=== PATIENT | female | born 1980 | race Caucasian/White ===

== ENCOUNTER 2022-05-20 08:02 | Outpatient (CLI) | payer BC, SELFPAY ==
--- NOTE | 2022-05-20 08:15 | CRLHL7_ITS ---
For Patients: As a result of the Century Cures Act, medical imaging exams and procedure reports are released immediately into your electronic medical record. You may view this report before your referring provider. If you have questions, please contact your health care provider. BILATERAL SCREENING MAMMOGRAM WITH COMPUTER-AIDED DETECTION AND TOMOSYNTHESIS TECHNIQUE: CC and MLO views were obtained. These mammographic images have been obtained using full-field digital technique. These mammographic images were interpreted with the benefit of computer-aided detection. Breast Tomosynthesis was used in this interpretation. COMPARISON FILM: 03/12/21, 02/14/20 and 02/20/20 diagnostic, 02/01/19. FINDINGS: There are scattered areas of fibroglandular density IMPRESSION: There is no radiographic evidence for malignancy. ASSESSMENT: BI-RADS Category 1: Negative RECOMMENDATION: Routine screening mammogram in 1 year. A lay language report of this examination will be provided to the patient. Trevon Villalta M.D. Diagnostic Radiologist [email or web address] ARVIN/Dictated by: Trevon Villalta MD @ 05/20/2022 12:35:00 PM (Electronically Signed)
[2022-05-20 11:05] LABS: Glucose* 91 mg/dL (60-115)
[2022-05-21 10:27] LABS: Cholesterol* 205 mg/dL (90-199); HDL Cholesterol* 71 mg/dL (>=50); LDL Cholesterol Calculated 116 mg/dL (<100); Triglycerides* 91 mg/dL (40-149)
== END 2022-05-20 08:03 | disposition home or self-care (01) ==
LOC: MAMMO 08:02
PROVIDERS: PCP Family Medicine; Visit Provider Physician Assistant
DX: Z12.31 Encounter for screening mammogram for malignant neoplasm of breast (principal); Z13.6 Encounter for screening for cardiovascular disorders; Z13.1 Encounter for screening for diabetes mellitus
CPT/HCPCS: 36415; 77063; 77067; 80061; 82947

== ENCOUNTER 2023-03-06 10:52 | Outpatient (CLI) | payer BC, SELFPAY | END 2023-03-06 10:53 | disposition home or self-care (01) | LOC: NFLDREF 10:55 | PROVIDERS: PCP Family Medicine; Visit Provider Physician Assistant | DX: Z01.419 Encounter for gynecological examination (general) (routine) without abnormal findings (principal); R63.5 Abnormal weight gain; R03.0 Elevated blood-pressure reading, without diagnosis of hypertension | CPT/HCPCS: 84443 ==

== ENCOUNTER 2023-04-01 08:04 | Outpatient (CLI) | payer BC, SELFPAY | END 2023-04-01 08:05 | disposition home or self-care (01) | LOC: NFLDREF 08:06 | PROVIDERS: PCP Family Medicine; Visit Provider Family Medicine | DX: R63.4 Abnormal weight loss (principal); R06.09 Other forms of dyspnea | CPT/HCPCS: 80053 ==

== ENCOUNTER 2023-04-30 10:09 | Outpatient (CLI) | payer BC, SELFPAY ==
[2023-04-30 10:50] VITALS: BP 146/77; PULSE 85
--- NOTE | 2023-04-30 11:17 | W.PM.STED ---
Stress Test Note Date Date of test: 04/30/23 Providers Primary care provider: Barber Mckeon Stress test physician: Myles Downing Stress Test Note Stress test ordered: Exercise Stress Test Indication for test: Shortness of breath Results discussion: Patient is a 43-year-old female presents for the above test, her resting EKG shows normal sinus rhythm, with a ventricular rate of 65, blood pressure 138/86. No acute ST wave changes noted. Cardiac stress test medical history form is reviewed, she would like to proceed. Standard exercise protocol is used over a time course of 11 minutes, she achieved a metabolic equivalent of 12.1 Mets. Maximum it was 168 which is 112% of the maximum. Her maximum blood pressure was 220 and 90. Test is terminated because of fulfillment of protocol, conditioning was felt to be excellent. No anginal equivalent symptoms are noted. Review of the tracing shows no specific ST wave changes suggestive of ischemia, there is no dysrhythmias. Impression: Negative electrographic portion of stress test, condition was felt to be excellent Follow up suggested: This is a negative test, if further testing is needed suggested would be had in an imaging modality such as a stress echo. Patient left this testing facility in good condition.
== END 2023-04-30 10:10 | disposition home or self-care (01) ==
LOC: STRESS 10:10
PROVIDERS: PCP Family Medicine; Visit Provider Family Medicine
DX: R06.09 Other forms of dyspnea (principal)
CPT/HCPCS: 93016; 93017

== ENCOUNTER 2023-11-10 14:23 | Outpatient (CLI) | payer BC, SELFPAY ==
--- OUTSIDE RECORDS SUMMARY | 2023-11-10 14:26 | XMS_ITS | Clinical Summary ---
Author Organization [facility] er Address [address] [place] [address] Care Team Providers Care Named Account Executive Name Role Phone None, Pcp Primary Care Provider Unavailabl e Social History Tobacco Use Types Packs/Day Years Used Date Smoking Tobacco: Never Smokeless Tobacco: Never Tobacco Cessation:Counseling Given: Not Answered Sex and Gender Information Value Date Recorded Sex Assigned at Not on file Gender Identity Not on file Sexual Orientation Not on file Last Filed Vital Signs Vital Sign Reading Time Taken Comments Blood Pressure 128/72 03/13/2023 4:13 PM CDT Pulse 80 03/13/2023 4:13 PM CDT Temperature - - Respiratory Rate - - Oxygen Saturation - - Inhaled Oxygen Concentration - - Weight 96.2 kg (212 lb) 03/13/2023 4:13 PM CDT Height 170.2 cm (5' 7) 03/13/2023 4:13 PM CDT Body Mass Index 33.2 03/13/2023 4:13 PM CDT Plan of Treatment Health Maintenance Due Date Last Done Comments CT Colonography 1978 Colonoscopy 1978 Colorectal Cancer Screening 1978 FIT-DNA 1978 Mammogram 1978 Pap Smear 1978 Sigmoidoscopy 1978 iFOBT 1978 COVID-19 Vaccine ( season) 2023 05/16/2021, 09/07/2020, 08/17/2020 DTaP,Tdap,and Td Vaccines (3 - Td or Tdap) 02/22/2024 02/21/2014, 09/03/2010 Influenza Vaccine Completed 03/06/2023, , 05/08/2016, Additional history exists HPV Vaccines Aged Out No longer eligi ble based on patient's age to complete this topic Pneumococcal Vaccine: Pediatrics (0 to 5 Years) and At-Risk Patients (6 to 64 Years) Aged Out No longer eligible based on patient's age to complete this topic Care Teams Named Account Executive Relationship Specialty Start Date End Date None, Pcp [address] [place] [phone] PCP - General Sand Mixer 03/11/23
--- NOTE | 2023-11-10 14:40 | CRLHL7_ITS ---
For Patients: As a result of the Century Cures Act, medical imaging exams and procedure reports are released immediately into your electronic medical record. You may view this report before your referring provider. If you have questions, please contact your health care provider. BILATERAL SCREENING MAMMOGRAM WITH COMPUTER-AIDED DETECTION AND TOMOSYNTHESIS TECHNIQUE: CC and MLO views were obtained. These mammographic images have been obtained using full-field digital technique. These mammographic images were interpreted with the benefit of computer-aided detection. Breast Tomosynthesis was used in this interpretation. COMPARISON FILM: 05/20/22, 03/12/21, 02/14/20. FINDINGS: There are scattered areas of fibroglandular density IMPRESSION: There is no radiographic evidence for malignancy. ASSESSMENT: BI-RADS Category 1: Negative RECOMMENDATION: Routine screening mammogram in 1 year. A lay language report of this examination will be provided to the patient. Trevon Villalta M.D. Diagnostic Radiologist [email or web address] Transcribed: 12:54 [email or web address] etran/Dictated by: Trevon Villalta MD @ 11/13/2023 11:43:00 AM (Electronically Signed)
== END 2023-11-10 14:24 | disposition home or self-care (01) ==
LOC: MAMMO 14:24
PROVIDERS: PCP Family Medicine; Visit Provider Physician Assistant
DX: Z12.31 Encounter for screening mammogram for malignant neoplasm of breast (principal)
CPT/HCPCS: 77063; 77067

== ENCOUNTER 2024-04-14 09:17 | Outpatient (CLI) | payer BC, SELFPAY ==
--- OUTSIDE RECORDS SUMMARY | 2024-04-14 09:19 | XMS_ITS | Clinical Summary ---
Author Organization [facility] er Address [address] [place] [address] Care Team Providers Care Securities Broker Name Role Phone None, Pcp Primary Care Provider Unavailabl e Social History Tobacco Use Types Packs/Day Years Used Date Smoking Tobacco: Never Smokeless Tobacco: Never Tobacco Cessation:Counseling Given: Not Answered Comments Unknown Sex and Gender Information Value Date Recorded Sex Assigned at Not on file Legal Sex Female 2:35 PM CDT Gender Identity Not on file Sexual Orientation [...] 1978 iFOBT 1978 COVID-19 Vaccine ( season) 2024 05/16/2021, 09/07/2020, 08/17/2020 Influenza Vaccine (#1) 2024 , 03/07/2020, 05/08/2016, Additional history exists DTaP,Tdap,and Td Vaccines (3 - Td or Tdap) 02/22/2024 02/21/2014, 09/03/2010 HPV Vaccines Aged Out No longer eligi ble based on patient's age to complete this topic Pneumococcal Vaccine: Pediatrics (0 to 5 Years) and At-Risk Patients (6 to 64 Years) Aged Out No longer eligible based on patient's age to complete this topic Care Teams Securities Broker Relationship Specialty Start Date End Date None, Pcp [address] [place] [phone] PCP - General Gate Tender 03/11/23
--- NOTE | 2024-04-14 10:36 | W.ANESCHARGE ---
Anesthesia Charges Start Date/Time Anesthesia Start Date: 04/14/24 Anesthesia Start Time: 10:03 Stop Date/Time Anesthesia Stop Date: 04/14/24 Anesthesia Stop Time: 10:32
--- NOTE | 2024-04-14 11:48 | W.ANESCHARGE ---
Anesthesia Charges Start Date/Time Anesthesia Start Date: 04/14/24 Anesthesia Start Time: 10:03 Stop Date/Time Anesthesia Stop Date: 04/14/24 Anesthesia Stop Time: 10:32
== END 2024-04-14 09:18 | disposition home or self-care (01) ==
LOC: OP CLINIC 09:17
PROVIDERS: PCP Family Medicine; Visit Provider Surgery
DX: Z12.11 Encounter for screening for malignant neoplasm of colon (principal); D12.7 Benign neoplasm of rectosigmoid junction; Z83.719 Family history of colon polyps, unspecified
CPT/HCPCS: 00811; 45385; 88305; J2704

== ENCOUNTER 2024-05-10 09:15 | Outpatient (RCR) | payer BC, SELFPAY | END 2024-06-27 08:41 | disposition home or self-care (01) | PROVIDERS: PCP Family Medicine; Visit Provider Internal Medicine | DX: G57.00 Lesion of sciatic nerve, unspecified lower limb (principal); G57.02 Lesion of sciatic nerve, left lower limb; Z51.89 Encounter for other specified aftercare | CPT/HCPCS: 97110; 97140; 97161 ==

== ENCOUNTER 2024-05-30 11:15 | Outpatient (CLI) | payer BC, SELFPAY ==
--- NOTE | 2024-06-07 11:58 | W.PM.SLEEP ---
Sleep Study Details Details Interpreting Provider: Rupa Date of Sleep Study: 05/30/24 Sleep Study Details: STUDY TYPE:? Home unattended ? BMI:? 25.9 ORDERING PROVIDER:? Rupa INDICATION:? Concerned about sleep apnea ? SLEEP SUMMARY:? 427 minutes monitor RESPIRATORY SUMMARY:? AHI 3.7 Low oxygen 84 2.1% of the study oxygen less than 90% Snoring 69.6% PERIODIC LIMB MOVEMENTS OF SLEEP:? Not record CARDIAC:? Range 51-134, mean 64.7 IMPRESSION:? Tachycardia was noted with a high rate of 134. Overall the study is not demonstrate clinically significant obstructive sleep apnea but there was significant hypo oxygenation during 9.6 minutes of the study. RECOMMENDATION: Further cardiac evaluation may be indicated for tachycardia. Given the amount of hypo oxygenation noted during the study (2.1% or 9.6 minutes) I would recommend a repeat study in the sleep lab.
== END 2024-05-30 11:16 | disposition home or self-care (01) ==
LOC: SLEEP 11:16
PROVIDERS: PCP Family Medicine; Visit Provider Otolaryngology
DX: G47.19 Other hypersomnia (principal); R00.0 Tachycardia, unspecified
CPT/HCPCS: 95806

== ENCOUNTER 2025-01-17 14:46 | Outpatient (CLI) | payer BC, SELFPAY ==
--- NOTE | 2025-01-17 15:00 | CRLHL7_ITS ---
For Patients: As a result of the Century Cures Act, medical imaging exams and procedure reports are released immediately into your electronic medical record. You may view this report before your referring provider. If you have questions, please contact your health care provider. INDICATION: BILATERAL SCREENING MAMOGRAM, ASYMPTOMATIC 44 Y/O FEMALE COMPARISON: 11/10/2023, 05/20/2022, 03/12/2021 TECHNIQUE: Digital mammogram in CC and MLO projections including computer-aided detection (CAD) and tomosynthesis. BREAST COMPOSITION: There are scattered areas of fibroglandular density. FINDINGS: No suspicious findings. ASSESSMENT: BI-RADS 1 Negative RECOMMENDATION: Annual screening mammogram. A lay language report of this examination will be provided to the patient. Dictated by: Trevon Villalta MD @ 01/18/2025 11:44:07 (Electronically Signed)
== END 2025-01-17 14:47 | disposition home or self-care (01) ==
LOC: MAMMO 14:47
PROVIDERS: PCP Family Medicine; Visit Provider Family Medicine
DX: Z12.31 Encounter for screening mammogram for malignant neoplasm of breast (principal)
CPT/HCPCS: 77063; 77067

== ENCOUNTER 2025-03-10 09:04 | Outpatient (CLI) | payer BC, SELFPAY ==
[2025-03-13 17:35] LABS: HPV Source Cervix
[2025-03-16 08:36] LABS: Pap Test Digital Imaging Done
== END 2025-03-10 09:05 | disposition home or self-care (01) ==
PROVIDERS: PCP Family Medicine; Visit Provider Registered Nurse
DX: Z12.4 Encounter for screening for malignant neoplasm of cervix (principal); Z00.00 Encounter for general adult medical examination without abnormal findings; Z13.1 Encounter for screening for diabetes mellitus
CPT/HCPCS: 80061; 82947; 87624; 87625; 88141; 88142; 88175

== ENCOUNTER 2025-04-27 13:54 | Outpatient (CLI) | payer BC, SELFPAY | END 2025-04-27 13:55 | disposition home or self-care (01) | LOC: NFLDUCREF 13:55 | PROVIDERS: PCP Family Medicine | DX: R07.9 Chest pain, unspecified (principal) | CPT/HCPCS: 85379 ==